=== PATIENT | female | born 1940 | race Caucasian/White ===

== ENCOUNTER 2017-06-09 07:13 | Day surgery (SDC) | payer OTHER ==
[~2017-06-09 07:13] MED LIST: BALANCED SALT IRRIG SOLN COMB1 500 ML, VANCOMYCIN FOR BSS PLUS 10 MG, GENTAMICIN SULFAT... IO ONE; VANCOMYCIN FOR CATARACT SURGERY MC ONE
[2017-06-09] MEDS ORDERED: CYCLOPENTOLATE 1% OPHT DROP 2 ML BOTTLE ONE (07:38)
[2017-06-09] MEDS ORDERED: CIPROFLOXACIN 0.3% OPHT DROP 2.5 ML BOTTLE ONE (07:38)
[2017-06-09] MEDS ORDERED: FLURBIPROFEN 0.03% OPHT DROP 2.5 ML BOTTLE ONE (07:38)
[2017-06-09] MEDS ORDERED: TROPICAMIDE 1% OPHT DROP 3 ML BOTTLE ONE (07:38)
[2017-06-09] MEDS ORDERED: PHENYLEPHRINE 2.5% OPHT DROP 2 ML BOTTLE ONE (07:39)
[2017-06-09] MEDS ORDERED: ATROPINE SULFATE 1% OPHT DROP 2 ML ONE (08:16)
[2017-06-09] MEDS ORDERED: PHENYLEPHRINE 10% OPHT DROP 5 ML BOTTLE ONE (08:16)
[2017-06-09] MEDS ORDERED: TIMOLOL MALEATE 0.5% OPHT DROP 5 ML BOTTLE ONE (08:50)
[2017-06-09] MEDS ORDERED: LIDOCAINE-MPF 2% 5 ML VIAL ONE (08:50)
[2017-06-09] MEDS ORDERED: EPINEPHRINE 1 MG/1 ML AMP ONE (08:51)
[2017-06-09] MEDS ORDERED: ACETYLCHOLINE CHLORIDE 1% OPHT 1 EA KIT ONE (08:51)
[2017-06-09] MEDS ORDERED: LIDOCAINE HCL-MPF 1% 5 ML VIAL ONE (08:51)
[2017-06-09] MEDS ORDERED: BALANCED SALT IRRIG SOLN COMB2 15 ML IRRIG.SOLN ONE (08:51)
[2017-06-09] MEDS ORDERED: TETRACAINE HCL 0.5% OPHT DROP 2 ML BOTTLE ONE (08:51)
[2017-06-09] MEDS ORDERED: NEO/POLYMYX B/DEXAME OPHT OINT 3.5 GM TUBE ONE (08:51)
[2017-06-09] MEDS ORDERED: HYALURONATE SODIUM 8.5 MG/0.85 ML DISP.SYRIN ONE (08:52)
[2017-06-09] MEDS ORDERED: HYALURONIDASE,OVINE 200 UNITS/ML VIAL ONE (08:52)
[2017-06-09] MEDS ORDERED: HYALURONATE SODIUM 12.8 MG/0.8 ML DISP.SYRIN ONE (08:52)
[2017-06-09] MEDS ORDERED: BUPIVACAINE PF 0.5% 30 ML VIAL ONE (08:52)
[2017-06-09] MEDS ORDERED: FENTANYL CITRATE 100 MCG/2 ML AMPUL ONE (09:27)
[2017-06-09] MEDS ORDERED: METOCLOPRAMIDE HCL 10 MG/2 ML VIAL ONE (10:32)
== END 2017-06-09 11:25 | disposition home or self-care (01) ==
LOC: DS 07:13
PROVIDERS: ATTEND Ophthalmology
DX: H26.9 Unspecified cataract (principal); E78.5 Hyperlipidemia, unspecified; I10 Essential (primary) hypertension; E03.9 Hypothyroidism, unspecified; M19.90 Unspecified osteoarthritis, unspecified site
CPT/HCPCS: 71010; 93005; A4663; J0171; J1580; J2765; J3010; J3370; J3471; J3490; J7120; J7321; V2632

== ENCOUNTER 2017-08-11 06:29 | Day surgery (SDC) | payer OTHER ==
[2017-08-11] MEDS ORDERED: ONDANSETRON 4 MG/2 ML VIAL IV ONE (06:30)
[2017-08-11] MEDS ORDERED: DEXAMETHASONE SOD PHOSPHATE 4 MG INJ IV ONE (06:30)
[2017-08-11] MEDS ORDERED: VANCOMYCIN FOR CATARACT SURGERY MC ONE ×2 (07:00)
[2017-08-11] MEDS ORDERED: BALANCED SALT IRRIG SOLN COMB1 500 ML, VANCOMYCIN FOR BSS PLUS 10 MG, GENTAMICIN SULFAT... IO ONE ×4 (07:00)
[2017-08-11] MEDS ORDERED: LORAZEPAM 0.5 MG TABLET ONE (07:05)
[2017-08-11] MEDS ORDERED: PHENYLEPHRINE 2.5% OPHT DROP 2 ML BOTTLE ONE (07:06)
[2017-08-11] MEDS ORDERED: TROPICAMIDE 1% OPHT DROP 3 ML BOTTLE ONE (07:06)
[2017-08-11] MEDS ORDERED: CIPROFLOXACIN 0.3% OPHT DROP 2.5 ML BOTTLE ONE (07:06)
[2017-08-11] MEDS ORDERED: CYCLOPENTOLATE 1% OPHT DROP 2 ML BOTTLE ONE (07:06)
[2017-08-11] MEDS ORDERED: KETOROLAC 0.5% OPHT DROP 3 ML BOTTLE ONE (07:08)
[2017-08-11] MEDS ORDERED: LIDOCAINE-MPF 2% 5 ML VIAL ONE (07:35)
[2017-08-11] MEDS ORDERED: TIMOLOL MALEATE 0.5% OPHT DROP 5 ML BOTTLE ONE (07:35)
[2017-08-11] MEDS ORDERED: LIDOCAINE HCL-MPF 1% 5 ML VIAL ONE (07:36)
[2017-08-11] MEDS ORDERED: BALANCED SALT IRRIG SOLN COMB2 15 ML IRRIG.SOLN ONE (07:36)
[2017-08-11] MEDS ORDERED: EPINEPHRINE 1 MG/1 ML AMP ONE (07:36)
[2017-08-11] MEDS ORDERED: NEO/POLYMYX B/DEXAME OPHT OINT 3.5 GM TUBE ONE (07:36)
[2017-08-11] MEDS ORDERED: TETRACAINE HCL 0.5% OPHT DROP 2 ML BOTTLE ONE (07:36)
[2017-08-11] MEDS ORDERED: HYALURONATE SODIUM 8.5 MG/0.85 ML DISP.SYRIN ONE (07:37)
[2017-08-11] MEDS ORDERED: HYALURONIDASE,OVINE 200 UNITS/ML VIAL ONE (07:37)
[2017-08-11] MEDS ORDERED: BUPIVACAINE PF 0.5% 30 ML VIAL ONE (07:37)
[2017-08-11] MEDS ORDERED: ACETYLCHOLINE CHLORIDE 1% OPHT 1 EA KIT ONE (07:37)
[2017-08-11] MEDS ORDERED: HYALURONATE SODIUM 12.8 MG/0.8 ML DISP.SYRIN ONE (07:37)
[2017-08-11] MEDS ORDERED: FENTANYL CITRATE 100 MCG/2 ML AMPUL ONE (08:33)
[2017-08-11] MEDS ORDERED: METOCLOPRAMIDE HCL 10 MG/2 ML VIAL ONE (09:06)
== END 2017-08-11 10:16 | disposition home or self-care (01) ==
LOC: DS 06:29
PROVIDERS: ATTEND Ophthalmology
DX: H26.9 Unspecified cataract (principal); I10 Essential (primary) hypertension; E03.9 Hypothyroidism, unspecified; E78.5 Hyperlipidemia, unspecified; Z98.890 Other specified postprocedural states; M19.012 Primary osteoarthritis, left shoulder
CPT/HCPCS: 66984; 82962; A4663; J0171 ×2; J1100; J1580; J2405; J2765; J3010; J3370 ×2; J3471; J3490 ×3; J7030; J7321 ×2; V2632